=== PATIENT | female | born 1955 | race Caucasian/White ===

== ENCOUNTER → 2018-05-01 | Day surgery (SDC) | payer OTHER ==
[~2018-05-01] MED LIST: ADULT LOW DOSE81 M1 PO; ALTACE10 MG PO; BISOPROLOL FUMA10 MG PO; COD LIVER OIL1 EACH PO; COZAAR100 MG PO; EZETIMIBE10 MG PO; GLIPIZIDE5 MG PO; INTEGRA PLUS C1 EACH PO; LASIX20 MG PO; METFORMIN HCL1000 M1 PO; OXYC1TAB9 PO; PERCOCET 5-3251 EACH PO; SYNTHROID50 MCG PO; TRICOR PO; XARELTO10 MG PO; ZOCOR PO
== END | disposition home or self-care (01) ==
LOC: ADM 04-25 10:15 → CIR.AMB 06:55
DX: D35.1 Benign neoplasm of parathyroid gland (principal)